=== PATIENT | female | born 1930 ===

== ENCOUNTER → 2021-07-19 | Outpatient (CLI) | payer OTHER | LOC: SJCVC 13:44 | PROVIDERS: ATTEND Nuclear Medicine Nuclear Cardiology | DX: I77.9 Disorder of arteries and arterioles, unspecified (principal); I44.7 Left bundle-branch block, unspecified; I47.1 Supraventricular tachycardia; I10 Essential (primary) hypertension; I82.409 Acute embolism and thrombosis of unspecified deep veins of unspecified lower extremity; E11.9 Type 2 diabetes mellitus without complications; I35.1 Nonrheumatic aortic (valve) insufficiency; Z82.49 Family history of ischemic heart disease and other diseases of the circulatory system; Z88.8 Allergy status to other drugs, medicaments and biological substances; Z88.0 Allergy status to penicillin; Z79.82 Long term (current) use of aspirin; Z79.899 Other long term (current) drug therapy ==

== ENCOUNTER → 2021-07-31 | Outpatient (CLI) | payer OTHER ==
[~2021-07-31] VITALS: Ht 160 cm; Wt 76.7 kg
[~2021-07-31] MED LIST: ASA81BEC PO; FUROSEMIDE 20 M20 MG PO; KLOR-CON 1010 MEQ PO; LIPITOR 20 MG T20 M1 PO; MECLIZINE HCL12.5 MG PO; MITIGARE0.6 MG PO; PLAVIX 75 MG TA75 MG PO; PREDNISONE 10 M10 MG PO; SLEEP AID50 MG PO; WEGOVY0.5 MG/0.5 SUBQ; acetaminophen PO
[2021-07-31 09:49] VITALS: BP 166/65
[2021-07-31 10:06] LABS: HEMATOCRIT 39.7 % (37.0-47.0); HEMOGLOBIN 13.2 gm/dL (12.0-15.0); MCH 31.2 pg (26.0-34.0); MCHC 33.2 g/dL (28.0-37.0); MCV 94.1 fL (80.0-100.0); RBC 4.22 mil/uL (4.20-5.00); RDW 12.4 % (10.5-14.5); WBC 7.7 thou/uL (4.0-11.0)
[2021-07-31 10:16] LABS: CALCIUM 9.3 mg/dL (8.5-10.1); CREATININE 1.1 mg/dL (0.6-1.0)
== END | disposition home or self-care (01) ==
LOC: CATH 07-28 12:31
PROVIDERS: ATTEND Nuclear Medicine Nuclear Cardiology
DX: I65.22 Occlusion and stenosis of left carotid artery (principal); I70.1 Atherosclerosis of renal artery; I73.89 Other specified peripheral vascular diseases; M79.604 Pain in right leg; M79.605 Pain in left leg; I10 Essential (primary) hypertension; E11.9 Type 2 diabetes mellitus without complications; I25.10 Atherosclerotic heart disease of native coronary artery without angina pectoris; M19.90 Unspecified osteoarthritis, unspecified site; M10.9 Gout, unspecified; Z98.890 Other specified postprocedural states; Z79.899 Other long term (current) drug therapy; Z79.4 Long term (current) use of insulin; Z86.73 Personal history of transient ischemic attack (TIA), and cerebral infarction without residual deficits; Z88.0 Allergy status to penicillin; Z88.2 Allergy status to sulfonamides